=== PATIENT | female | born 1955 | race Caucasian/White ===

== ENCOUNTER → 2021-07-05 | Outpatient (CLI) | payer OTHER ==
--- NOTE | 2021-07-05 16:24 | RAD ---
Three-view cervical spine series including neutral and flexion and extension lateral views Clinical indications: Cervicalgia. FINDINGS: No anterolisthesis is seen. There is retrolisthesis of C6-7 which measures 3 mm in flexion and 3 mm in extension. There is moderate to severe degenerative disc space narrowing and endplate spu rring at C5-6 and C6-7. No abnormal movement is seen between C1 and C2. Degenerative facet arthropath y is seen throughout the cervical spine. No discitis or lytic process or prevertebral soft tissue swe lling is evident. IMPRESSION: Mild retrolisthesis of C6-7 which does not change between flexion and extension. Degenera tive cervical spondylosis at C5-6 and C6-7. Electronically signed by: Gadiel Malone MD (07/05/2021 4:21 PM) [id number]
== END ==
LOC: RAD 10:01
PROVIDERS: ATTEND Specialist
DX: M47.812 Spondylosis without myelopathy or radiculopathy, cervical region (principal); M43.12 Spondylolisthesis, cervical region; M48.02 Spinal stenosis, cervical region; M46.02 Spinal enthesopathy, cervical region
CPT/HCPCS: 72040